=== PATIENT | female | born 1960 | race Caucasian/White ===

== ENCOUNTER → 2017-08-29 | Outpatient (CLI) | payer BC ==
--- NOTE | 2017-08-29 17:04 | CONS ---
CONSULTATION DATE OF SERVICE: 08/29/2017 This patient is a 56-year-old lady who has been evaluated in the sleep center for possible obstructive sleep apnea-hypopnea syndrome. HISTORY OF PRESENT ILLNESS/SLEEP-WAKE EVALUATION: Patient usually goes to bed around 6:30 p.m. but falls asleep around 9 p.m. and gets up in the morning around 4 a.m. She does watch TV in the bedroom and turns it off when she is falling asleep. She usually sleeps on her back and side positions. She has loud snoring and multiple awakenings from sleep with some episodes of nocturia. In the morning the patient wakes up tired, has problems with memory, concentration, irritability. [place] Sleepiness Scale is 6. PAST MEDICAL HISTORY: 1. Multiple sclerosis. 2. Hypertension. 3. ADHD plus anxiety. PAST SURGICAL HISTORY: 1. Left ankle fracture with repair in 2015. 2. Right foot surgery in 2009. MEDICATIONS: 1. Ritalin. 2. Temazepam. 3. Neurontin. 4. Effexor. 5. Baclofen. 6. [place]. 7. Metoprolol. 8. Lorazepam. 9. Betaseron. SOCIAL HISTORY: Positive for smoking half pack a day for 10 years Patient continues smoking. Alcohol consumption: None. FAMILY HISTORY: Hypertension, sleep apnea, snoring, thyroid problems, acid reflux. REVIEW OF SYSTEMS: Snoring, awakenings from sleep, positive history of vivid dreams during naps. PHYSICAL EXAMINATION: GENERAL: A 56-year-old lady without distress. VITAL SIGNS: BP 140/75, HR 68, RR 16, height 5 feet 11 inches, weight 273, BMI 38, temperature 97.4, oxygen saturation at room air 93%. HEENT: PERRLA, EOMI. Evaluation of oropharynx showed tongue protrudes midline; low position of soft palate. Short distance between soft palate and pharyngeal wall. Small nasal passages with some restriction of nasal breathing. NECK: Supple. No JVD. Thyroid is not palpable. Wide neck; 16 inches in circumference. LUNGS: Clear to percussion and to auscultation. Good air exchange. No wheezing or rhonchi. HEART: S1, S2 regular. No murmurs, gallops or rubs. ABDOMEN: Obese. EXTREMITIES : No clubbing or cyanosis. Some difficulty with walking secondary to pain in her legs. FIRE TENDER: Awake, alert, and oriented X3. Cranial nerves 2 to 7 intact. There is no fasciculation or atrophy. noted. No focal deficits observed. IMPRESSION: 1. Snoring, multiple awakenings from sleep, small oropharyngeal air space, small nasal passages, wide neck, obesity; obstructive sleep apnea-hypopnea syndrome. 2. Multiple sclerosis with history of 7 lesions documented in her brain by MRI. 3. Hypertension. 4. History of attention deficit hyperactivity disorder, on treatment with Ritalin. 5. 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 6. History of anxiety. 7. Status post left ankle repair for fracture in 2015. 8. Status post right foot surgery in 2009. PLAN: 1. Polysomnography for evaluation of patient's breathing during sleep. 2. CPAP/BiPAP titration if sleep study confirms obstructive sleep apnea-hypopnea syndrome. 3. Preferable position during sleep on the side. 4. No driving if patient feels any sleepiness. 5. I will see patient for follow up visit to explain results of testing and following plan. Thank you very much for referring this patient for consultation. Sincerely, Brian Marie MD, PhD, FAASM Diplomat of [employer] [place] [employer] Car Coupler of [facility] [place] MMODL / JAYYN: [id number] /
== END | disposition home or self-care (01) ==
LOC: SLEEP 15:35
PROVIDERS: ATTEND Internal Medicine
DX: G47.33 Obstructive sleep apnea (adult) (pediatric) (principal); E66.9 Obesity, unspecified; G35 Multiple sclerosis; I10 Essential (primary) hypertension; Z86.59 Personal history of other mental and behavioral disorders; Z98.890 Other specified postprocedural states; Z99.89 Dependence on other enabling machines and devices; F17.200 Nicotine dependence, unspecified, uncomplicated; Z79.891 Long term (current) use of opiate analgesic; Z79.899 Other long term (current) drug therapy
CPT/HCPCS: 99211

== ENCOUNTER → 2018-01-15 | Outpatient (CLI) | payer BC ==
--- NOTE | 2018-01-15 17:29 | PN ---
PROGRESS NOTE DATE OF SERVICE: 01/15/2018. A 57-year-old lady who has been followed in the sleep center for treatment of obstructive sleep apnea-hypopnea syndrome. Recently patient had a polysomnogram and CPAP titration and I discussed results of the sleep studies with patient in detail. Polysomnogram showed obstructive sleep apnea- hypopnea syndrome with apnea-hypopnea index 17.7. Subsequently, patient was treated with CPAP. Results of titration showed that pressure of 9 was enough for correction of respiratory abnormalities. The patient received her CPAP unit, started to use CPAP and she feels better with the CPAP. She sleeps better and feels better during the day. [place] Sleepiness Scale today is all the way in high range, 19. I checked the patient's CPAP unit. CPAP pressure 9 cm of water. Usage is 29/30 nights more than 4 hours. Average usage is 9.3 hours. Leak is only 1 L/minute. Reading from the machine showed apnea-hypopnea index 19.8, which is quite high. MEDICATIONS: 1. Singulair. 2. Ritalin. 3. Temazepam. 4. Neurontin. 5. Effexor. 6. Baclofen. 7. [place]. 8. Metoprolol. 9. Lorazepam. 10.Betaseron. PHYSICAL EXAMINATION: GENERAL Patient in no distress. VITAL SIGNS BP 127/81, HR 67, RR 16, weight 278.2, temperature 97.5. HEENT PERRLA, EOMI, evaluation of oropharynx showed tongue protrudes midline, extremely low position of soft palate. Neck Supple, no JVD. Thyroid is not palpable. LUNGS Clear to percussion and to auscultation. Good air exchange. No wheezing or rhonchi. HEART S1, S2 regular. No murmurs, gallops, or rubs. ABDOMEN Obese, soft and nontender. Bowel sounds are present. No organomegaly appreciated. EXTREMITIES No clubbing or cyanosis. [place] Awake, alert, and oriented X3. Cranial nerves 2 to 7 intact. There is no fasciculation or atrophy. noted. No focal deficits observed. IMPRESSION: 1. Obstructive sleep apnea-hypopnea syndrome. Patient demonstrated good compliance with treatment. Feels better, but reading from the machine still shows high apnea- hypopnea index. 2. Obesity. 3. Multiple sclerosis. 4. Severe [place] periodic limb movements during titration and very minimal periodic limb movement during diagnostic night. 5. Hypertension. 6. History of attention deficit hyperactivity disorder. 7. History of anxiety. 8. Status post left ankle repair. 9. Status post right foot surgery in 2009. PLAN: 1. I changed the pressure in the machine to the range of minimal 6 and maximal 15. 2. The patient complained on feeling too hot air. Humidity was decreased to 1. 3. The patient should continue to use equipment every night. 4. Sleep hygiene with regular time bed for at least 8 hours. 5. No driving if feeling any sleepiness. 6. Followup visit in 1-2 months. Thank you very much for allowing me to participate in management of your patient. Sincerely, Brian Marie MD, PhD, FAASM Diplomat of [employer] Head Librarian of [facility] [place] BELIA / JM: [id number] /
== END | disposition home or self-care (01) ==
LOC: SLEEP 15:43
PROVIDERS: ATTEND Internal Medicine
DX: G47.33 Obstructive sleep apnea (adult) (pediatric) (principal); E66.9 Obesity, unspecified; G35 Multiple sclerosis; G47.61 Periodic limb movement disorder; I10 Essential (primary) hypertension; F41.9 Anxiety disorder, unspecified; F90.1 Attention-deficit hyperactivity disorder, predominantly hyperactive type; Z79.899 Other long term (current) drug therapy; Z79.891 Long term (current) use of opiate analgesic; Z98.890 Other specified postprocedural states

== ENCOUNTER → 2018-09-18 | Outpatient (CLI) | payer BC ==
--- NOTE | 2018-09-18 18:32 | PN ---
PROGRESS NOTE DATE OF SERVICE: 09/18/2018 This patient is a 58-year-old lady who has been followed in Sleep Center for treatment of obstructive sleep apnea-hypopnea syndrome. During her previous visit in December of 2017, apnea-hypopnea index reading from the machine was above normal. Consequently I increased the pressure in the machine. At present the patient is able to use the machine every night for the whole night without problems. No snoring with the machine. [place] Sleepiness Scale is 11. I checked her CPAP unit. Range of the pressure is 6 to 15, average pressure 14.9. Usage is every night, 30/30 nights, for more than 4 hours. Average usage is 10.9 hours per night. Leak is 0 L/minute. Apnea-hypopnea index reading for the last month is 5.3; for the last night 3.3, which is within normal range. MEDICATIONS: 1. Singulair. 2. Temazepam. 3. Ritalin. 4. Neurontin. 5. Effexor. 6. Baclofen. PHYSICAL EXAMINATION: GENERAL: A pleasant patient in no distress. VITAL SIGNS: BP 144/83, HR 94, RR 16, height 5 feet 11 inches, weight 260 pounds, body mass index 36.2, temperature 98.5, oxygen saturation at room air 97%. HEENT: PERRLA, EOMI. Evaluation of oropharynx showed tongue protrudes midline. Extremely low position of soft palate. Mallampati IV. NECK: Supple. No JVD. Thyroid is not palpable. LUNGS: Clear to percussion and to auscultation. Good air exchange. No wheezing or rhonchi. HEART: S1, S2 regular. No murmurs, gallops or rubs. ABDOMEN: Slightly obese. EXTREMITIES: No clubbing or cyanosis. FOOD SERVICE UTILITY WORKER: Awake, alert, and oriented X3. Cranial nerves 2 to 7 intact. There is no fasciculation or atrophy. noted. No focal deficits observed. IMPRESSION: 1. Obstructive sleep apnea-hypopnea syndrome. The patient demonstrated great compliance with treatment, benefitting from treatment. 2. Obesity. 3. History of multiple sclerosis. 4. Occasional leg movements at night. 5. Hypertension. 6. History of [id number]-[id number]-[id number] disorder. 7. History of anxiety. 8. Status post left ankle repair. 9. Status post right foot surgery in 2009. PLAN: 1. Patient will continue to use CPAP equipment with the same regimen of pressure every night for the whole night like she is doing now. 2. Losing weight. Patient lost 18 pounds since her previous visit. 3. Sleep hygiene with regular time in bed for 7-1/2 to 8 hours. 4. No driving if feeling any sleepiness. 5. Will maintain all necessary prescriptions for all CPAP supplies, including mask, tube, filters. 6. Follow-up visit in one year, or earlier if patient has any problems. Thank you very much for allowing me to participate in the management of your patient. Sincerely, Brian Marie MD, PhD, FAASM Diplomat of [employer] Director Plans of [facility] [place] MMODL / JAYYN: [id number] /
== END ==
LOC: SLEEP 15:32
PROVIDERS: ATTEND Internal Medicine
DX: G47.33 Obstructive sleep apnea (adult) (pediatric) (principal); E66.9 Obesity, unspecified; I10 Essential (primary) hypertension; Z86.69 Personal history of other diseases of the nervous system and sense organs; Z98.890 Other specified postprocedural states; Z99.89 Dependence on other enabling machines and devices; Z68.36 Body mass index [BMI] 36.0-36.9, adult; Z79.899 Other long term (current) drug therapy

== ENCOUNTER → 2020-07-27 | Outpatient (CLI) | payer BC ==
--- NOTE | 2020-07-27 13:36 | SFUN ---
SLEEP CENTER FOLLOW UP NOTE DATE OF SERVICE: 07/27/2020 This 59-year-old lady has been followed in Sleep Center for treatment of obstructive sleep apnea-hypopnea syndrome. The patient continued to use her CPAP equipment every night. According to her , she does not snore. She feels well. She likes her machine. [place] Sleepiness Scale is 4. No problem with the mask fitting, pressure and humidification. Previous visit was about 1-1/2 years ago. I checked CPAP unit. Range of the pressure 6-15, average pressure is 14.9, usage 29 out of 30 nights more than 4 hours. Average usage 8.8 hours per night. Leak is only 2 L/minute. Apnea-hypopnea index 1.1, which is perfect. MEDICATIONS: Wellbutrin once a day, Zoloft once a day, Synthroid once a day, Ritalin. REVIEW OF SYSTEMS: Patient denied any headache, shortness of breath, chest discomfort. PHYSICAL EXAMINATION: GENERAL: Patient in no distress. VITAL SIGNS: BP 198/92, HR 83, RR 15, height 6 feet 0 inches, weight 284.8, temperature 97.0, oxygen saturation at room air 98%. HEENT: PERRLA, EOMI. Oropharynx extremely low position of soft palate. Mallampati 4. NECK: Supple, no JVD. Thyroid is not palpable. LUNGS: Clear to percussion and to auscultation. Good air exchange. No wheezing or rhonchi. HEART: S1, S2 regular. No murmurs, gallops, or rubs. ABDOMEN: Slightly obese. EXTREMITIES: No clubbing or cyanosis. BILL CLERK: Awake, alert, and oriented X3. Cranial nerves 2 to 7 intact. There is no fasciculation or atrophy. noted. No focal deficits observed. IMPRESSION: 1. Obstructive sleep apnea-hypopnea syndrome. Patient demonstrated 100% compliance with treatment, benefitting from treatment. 2. Hypertension in the office today. 3. History of attention deficit hyperactivity disorder. 4. Hypothyroidism. 5. History of anxiety. 6. Status post left ankle repair. 7. Status post right foot surgery in 2009. 8. Previously patient was diagnosed with multiple sclerosis according to patient recently diagnosed was . PLAN: 1. Patient will continue to use PAP equipment every night for the whole night. 2. Sleep hygiene with regular time in bed for at least 7-1/2 to 8 hours. 3. Precautions related to driving. No driving if feeling sleepiness. 4. I will maintain all necessary prescription for PAP supplies including mask, tube, filters. 5. Watching weight. 6. Follow-up visit in 6 months or earlier if patient has any problems. 7. Low-sodium diet, monitoring of blood pressure. 8. Follow up with the primary care physician for monitoring of blood pressure if necessary and possibly treatment with medications. Thank you very much for allowing me to participate in management of your patient. Sincerely, Brian Marie MD, PhD, FAASM Diplomat of [employer] Algebraist of [facility] [place] MMODL / IJN: [id number] /
== END ==
LOC: SLEEP 11:40
PROVIDERS: ATTEND Internal Medicine
DX: G47.33 Obstructive sleep apnea (adult) (pediatric) (principal); I10 Essential (primary) hypertension; F90.9 Attention-deficit hyperactivity disorder, unspecified type; E03.9 Hypothyroidism, unspecified; F41.9 Anxiety disorder, unspecified; G35 Multiple sclerosis; Z98.890 Other specified postprocedural states; Z79.890 Hormone replacement therapy; Z79.899 Other long term (current) drug therapy